=== PATIENT | male | born 1970 | race Caucasian/White ===

== ENCOUNTER 2017-02-17 05:50 | Inpatient (IN) | payer OTHER ==
[2017-02-14 10:31] VITALS: Ht 182.9 cm; Wt 85.0 kg
[~2017-02-17] VITALS: Ht 182.9 cm; Wt 85.0 kg
[2017-02-17] VITALS (22 sets, daily range): BP systolic 107–127; BP diastolic 59–78; PULSE 62–82; RESP 7–19
--- NOTE | 2017-02-17 06:31 | HPN ---
Date/Time of Note Date/Time of Note DATE: 02/17/17 TIME: 06:30 Interval H&P Admission Note Pt. seen H&P reviewed: No system changes LENNY HADLEY MD February 17, 2017 06:31
[2017-02-17] MEDS ORDERED: SUCCINYLCHOLINE CHLORIDE 100 MG/5 ML SYG IV ONE (06:46)
[2017-02-17] MEDS ORDERED: LIDOCAINE 2% (SDV) 5 ML INJ ONE (06:46)
[2017-02-17] MEDS ORDERED: ROCURONIUM 50 MG INJ ONE (06:46)
[2017-02-17] MEDS ORDERED: MIDAZOLAM 1 MG/ML 2 ML INJ ONE (06:47)
[2017-02-17] MEDS ORDERED: ROPIVACAINE 0.5 % 30 ML VIAL ONE ×2 (06:47→06:54)
[2017-02-17] MEDS ORDERED: PROPOFOL 20 ML ONE (06:47)
[2017-02-17] MEDS ORDERED: FENTAnyl 50 MCG/ML VIAL ONE (06:47)
[2017-02-17] MEDS ORDERED: THROMBIN 5000 UNIT VIAL ONE (06:54)
[2017-02-17] MEDS ORDERED: POLYMYXIN/BACITRACIN 1L IRRIG ONE ×2 (06:54→10:41)
[2017-02-17] MEDS ORDERED: GELATIN SIZE 100 SPONGE ONE (06:54)
[2017-02-17] MEDS ORDERED: PROPOFOL 200 MG INJ ONE (07:00)
[2017-02-17] MEDS ORDERED: HYDROmorphONE 2 MG/ML SYG ONE (07:43)
[2017-02-17] MEDS ORDERED: ONDANSETRON 4 MG INJ ONE (07:43)
[2017-02-17] MEDS ORDERED: METOCLOPRAMIDE 10 MG INJ ONE (07:43)
[2017-02-17] MEDS ORDERED: DEXAMETHASONE 4 MG/ML 1 ML INJ ONE (07:43)
[2017-02-17] MEDS ORDERED: FAMOTIDINE 20 MG INJ ONE (07:43)
[2017-02-17] MEDS ORDERED: EPHEDrine SULFATE 50 MG/5 ML SYG ONE (08:19)
[2017-02-17] MEDS ORDERED: DIPHENHYDRAMINE 50 MG INJ IV PRN (10:30)
[2017-02-17] MEDS ORDERED: FENTAnyl 50 MCG/ML VIAL IV PRN ×3 (10:30)
[2017-02-17] MEDS ORDERED: PROCHLORPERAZINE 10 MG INJ IV PRN (10:30)
[2017-02-17] MEDS ORDERED: HYDROmorphONE (0.2 MG/ML) 10ML SYG IV PRN ×3 (10:30)
[2017-02-17] MEDS ORDERED: ONDANSETRON 4 MG INJ IV PRN (10:30)
[2017-02-17] MEDS ORDERED: MEPERIDINE 25 MG INJ IV PRN (10:30)
[2017-02-17] MEDS ORDERED: POVIDONE IODINE 10% 28.4 GM OINT ONE (10:56)
[2017-02-17] MEDS ORDERED: CEFAZOLIN 1 GM INJ ONE ×3 (11:23)
[2017-02-17] MEDS: SOD CHLORIDE 0.9% 1,000 ML IV SCH ×2 (11:42→21:55)
[2017-02-17] MEDS ORDERED: HYDROmorphONE 0.2 MG/ML PCA ONE (11:56)
[2017-02-17] MEDS ORDERED: morphine 10 MG INJ IV PRN (12:00)
[2017-02-17] MEDS ORDERED: DIPHENHYDRAMINE 25 MG CAP PO PRN (12:00)
[2017-02-17] MEDS ORDERED: HYDROmorphONE 0.2 MG/ML PCA IV SCH (12:00)
[2017-02-17] MEDS ORDERED: BISACODYL 10 MG SUPP PR PRN (12:00)
[2017-02-17] MEDS ORDERED: OXYCODONE/ACETAMINOPHEN (5/325) TAB PO PRN (12:00)
[2017-02-17] MEDS ORDERED: CEFAZOLIN 1 GM INJ IV SCH (12:00)
--- NOTE | 2017-02-17 15:05 | OPR ---
DATE OF OPERATION: 02/17/2017 PREOPERATIVE DIAGNOSES: 1. Status post Lisfranc fracture dislocation of the left foot. 2. Status post open reduction internal fixation Lisfranc fracture dislocation, 1985. 3. Degenerative joint disease, first, second, third metatarsocuneiform joints. POSTOPERATIVE DIAGNOSES: 1. Status post Lisfranc fracture dislocation of the left foot. 2. Status post open reduction internal fixation Lisfranc fracture dislocation, 1985. 3. Degenerative joint disease, first, second, third metatarsocuneiform joints. OPERATIONS PERFORMED: 1. Arthrodesis of the first metatarsocuneiform joint. 2. Arthrodesis of the second metatarsocuneiform joint. 3. Arthrodesis of the third metatarsocuneiform joint. 4. Arthrodesis of the first and second metatarsals. 5. Arthrodesis of the middle to the medial cuneiform. 6. Iliac crest bone graft to the arthrodesis site with Ignite 7. Use of fluoroscopy to verify position and alignment of the guide pins and screws and plates. 8. Short leg cast. Extremely complex difficult procedure because the patient had previously had surgery, so this was a revision surgery. There was extensive amount with altered anatomy, adhesions, scar tissue. It was difficult initially to find some of the joints because of this. Because of the complex nature of th e surgery, add an additional 60 minutes (22). SURGEON: Lenny Danielson MD WRAPPER CASHIER: Eleni Ivory MD ANESTHESIA: General. TOURNIQUET TIME: 142 minutes. DESCRIPTION OF PROCEDURE: The patient taken to the operating room and placed in supine. Satisfacto ry popliteal block was given, satisfactory general anesthesia was administered, 2 grams Ancef given intravenously. The left iliac crest all the way down to the tip of the foot was prepped and draped in the usual manner. Our attention was turned to the iliac crest. The skin was pulled up on the iliac crest. I made an incision over the mid portion. Dissection car ried down to subcutaneous tissue. Fascia was split in line with its fibers and retracted. Two vert ical cuts were made, one horizontal cut was made in the top of the iliac crest to trap door open the iliac crest. Bone graft was obtained with different angled curets. Bone marrow aspirate was also removed as well. Once adequate amount of bone graft and bone marrow aspirate had been obtained, the wounds were irrigated with antibiotic solution and packed with thrombin-soaked Gelfoam. Gloves wer e changed. A sterile cover was placed over the wound, and our attention was turned to the foot. Tourniquet inflated to 250 mmHg. We already had one incision that we were obligated to use, althoug h it was not in an optimal position. We made a second incision more medial to try to leave as much skin bridge as possible, but still allow us get to the areas of the surgery. Incision was made over the first and second metatarsocuneiform joint. Dissection carried down to subcutaneous tissue. Te ndons and neurovascular bundles were elevated out of the field. Using electrosurgery and elevator, first metatarsocuneiform joint was identified and verified under fluoroscopy with a needle in it. T he second metatarsocuneiform joint was identified, verified with a needle, and verified under fluoro scopy. The second metatarsal base was identified as was the middle to the medial cuneiform articula tion. We only went a little bit of the way and several millimeters in both of those articulations, not violate the naviculocuneiform joint. Using different angled curettes and an osteotome, all maría cular cartilage was removed from the first and second metatarsocuneiform joints. Laminar spur was u sed to give us good exposure. A bur was used to remove 1 mm of bone from the first metatarsocuneifo rm joint, second metatarsocuneiform joint, and then the metatarsals 1 and 2 joint, and the cuneiform joints. Multiple "spot welds were made" to facilitate bleeding. Multiple drill holes were made wi th 0.045 K-wire. Once appropriate preparation of the 2 joints was made, we had to go through the pr evious incision carefully. It was very difficult to find as the second and third joints particularl y because of previous surgery. There was a lot of scarring and Adhesions. Eventually we were able to identify the third metatarsocuneiform joint. Osteophytes were removed off of all 3 joints with a rongeur and with a bur. All articular cartilage was removed from the third metatarsocuneiform join ts. A bur was used to remove about 1 mm of bone on both sides of the metatarsocuneiform joint and t hen multiple spot welds were made and multiple drill holes were made. We removed any soft tissue be tween the second and third metatarsocuneiform joints. The bone graft was then inserted in all the j oints that we fused as mentioned above in our operation description. Blood was sterilely aspirated from the patient and then mixed with Ignite and this was injected in all the joints as well includin g the first, second, and third metatarsocuneiform joints. The first metatarsocuneiform joint was re duced and fixated with the guide pin from the 4.0 AO cannulated screw set. Looked well reduced, goo d position on fluoroscopic view. A U-plate from the [place] Dog set was fitted over the first an d second metatarsocuneiform joints. It was fixated with screws, and then compression was done throu gh each segment with a special compression device. The hole was partially drilled the 4.0 AO cannul ated screw set, and then a screw of appropriate length was inserted. Excellent compression was achi eved. A small 2-hole plate was then applied over the third metatarsocuneiform joint and compression applied. The tourniquet was released, bleeders were coagulated, wounds irrigated with antibiotic s olution. Additional Ignite was injected at all the fusion joints. Then the soft tissues were close d over the plates with 3-0 undyed Vicryl running in both incisions. Both incisions were then closed with 4-0 black nylon, interrupted throughout the procedure, the flap looked healthy. An ankle bloc k was done with 0.5% ropivacaine, ropivacaine was injected in the hip. Compression dressing was alba blake on the hip, compression dressing placed on the ankle, a short-leg cast was placed in neutral pos ition. At the end of procedure, sponge and needle count was correct. The patient did well and the case was split in the recovery room. VFX ARTIST ORTHOPEDIC SURGEON: During the procedure, an malt specifications control assistant orthopedic surgeon was used at my request. The malt specifications control assistant helped with exposure in both areas. The malt specifications control assistant also helped with insertin g the screws while I held the joints reduced. Without a skilled orthopedic surgeon assisting me, th is could not have been done; therefore, it should be compensated appropriately. Dictated By: LENNY SANTAMARIA/ROXANNE Conf#: [id number] DID#: [id number]
--- NOTE | 2017-02-17 16:51 | RADRPT ---
PROCEDURE: Intraoperative imaging of the left foot with fluoroscopy. CLINICAL INDICATION: Left foot pain. Intraoperative. TECHNIQUE: 8 images of the left foot were obtained in the operating room with an image intensifier . No radiologist was in attendance. 0.3 minutes of fluoroscopy time was used. COMPARISON: No prior study is available for comparison. FINDINGS: Images demonstrate fusion of the first, second, and third tarsal-metatarsal joints with plates and s crews. IMPRESSION: 1. Intraoperative imaging of the left foot. RPTAT: QQ .Dayton Matias MD, MD Date Time Electronically viewed and signed by .Dayton Matias MD, on 02/17/2017 16:51 .R/
[2017-02-17] MEDS: CEFAZOLIN 2 GM/50 ML (PMX) 50 ML IVPB SCH (18:27)
[2017-02-17] MEDS: SENNA/DOCUSATE NA (8.6MG/50MG) TAB PO SCH (21:55)
[2017-02-17] MEDS: HYDROCODONE/APAP (5/325) TAB PO PRN (22:12)
[2017-02-18] MEDS: CEFAZOLIN 2 GM/50 ML (PMX) 50 ML IVPB SCH ×3 (02:17→18:36)
[2017-02-18] MEDS: HYDROCODONE/APAP (5/325) TAB PO PRN ×6 (02:26→22:33)
--- NOTE | 2017-02-18 07:17 | PN ---
Date/Time of Note Date/Time of Note DATE: 02/18/17 TIME: 07:15 Assessment/Plan VTE Prophylaxis VTE Prophylaxis Intervention: ambulation, other (Xarelto) Lines/Catheters IV Catheter Type (from Nrsg): Peripheral IV Urinary Cath still in place: No Assessment/Plan Chief Complaint/Hosp Course POD#1 s/p left 1-3 MT/Cuneiform fusion with left sided iliac crest bone graft. 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 NWB LLE. - SCD's/Xarelto/ambulation for DVT PPx - Dispo pending pain control and PT clearance, likely this afternoon. Subjective 24 Hr Interval Summary Subjective hx not possible: other (no acute overnight issues. pain well controlled. Denies nausea/vomiting/Chest pain/shortness of breath) Exam/Review of Systems Vital Signs Vitals Vital Signs Date Time Temp Pulse Resp B/P Pulse Ox O2 Delivery O2 Flow Rate FiO2 02/18/17 05:40 18 02/17/17 20:38 98.0 60 111/69 99 02/17/17 17:00 Room Air 02/17/17 11:56 8.0 Intake and Output 02/17/17 02/17/17 02/18/17 15:00 23:00 07:00 Intake Total 1950 ml 350 ml 240 ml Output Total 30 ml 1100 ml Balance 1920 ml 350 ml -860 ml Exam Constitutional: alert, oriented Respiratory: normal air movement Cardiovascular: nl pulses Musculoskeletal: other (LLE cast with some serosanguinous soak through. Able to wiggle toes. Sensation grossly intact. Brisk capillary refill. Left hip dressing CDI. ) Medications Medications Current Medications Senna/Docusate Sodium (Senokot-S) 1 tab BID PO Last administered on 02/17/17 21 :55; Admin Dose 1 TAB; Start 02/17/17 at 21:00 Magnesium Hydroxide (Milk Of Mag) 30 ml HS PO ; Start 02/19/17 at 21:00 Bisacodyl 10 mg 10 mg DAILY PRN [place] CONSTIPATION; Start 02/17/17 at 12:00 Sodium Chloride (NS) 1,000 ml @ 100 mls/hr Q10H IV Last administered on 21:55; Admin Dose 100 MLS/HR; Start 02/17/17 at 11:42 Morphine Sulfate (morphine) 5 mg Q4H PRN IV PAIN LEVEL 7-10; Start 02/17/17 at 12:00 Ondansetron HCl (Zofran Inj) 4 mg Q4H PRN IV NAUSEA AND/OR VOMITING; Start 02/17 at 12:00 Diphenhydramine HCl 25 mg 25 mg Q4H PRN PO ITCHING; Start 02/17/17 at 12:00 Cefazolin Sodium/ Dextrose (Ancef 2 Gm/50 ml (Pmx)) 50 ml @ 100 mls/hr Q8H IVPB Last administered on 02/18/17 02:17; Admin Dose 100 MLS/HR; Start 02/17/17 at 18:00; Stop 02/19/17 at 10:29 Acetaminophen/ Hydrocodone Bitart ([place] (5/325)) 2 tab Q4H PRN PO Moderate Pain 5-7 Last administered on 02/18/17 06:32; Admin Dose 2 TAB; Start 02/17/17 at 20:30 LENNY HADLEY MD February 18, 2017 07:17
[2017-02-18] MEDS: SOD CHLORIDE 0.9% 1,000 ML IV SCH ×2 (07:42→16:02)
[2017-02-18 09:08] VITALS: BP_SYST 104; BP_SYST 118; BP_DIAS 55; BP_DIAS 57; RESP 19
[2017-02-18] MEDS: SENNA/DOCUSATE NA (8.6MG/50MG) TAB PO SCH ×2 (10:42→20:27)
[2017-02-18] MEDS ORDERED: OXYCODONE/ACETAMINOPHEN (5/325) TAB PO PRN (11:00)
[2017-02-18] MEDS: HYDROmorphONE 1 MG/ML SYG IV PRN ×4 (11:19→21:17)
[2017-02-18] MEDS: RIVAROXABAN 10 MG TABLET PO SCH (18:35)
[2017-02-18] MEDS: ONDANSETRON 4 MG INJ IV PRN (18:35)
[2017-02-18 20:07] VITALS: BP 114/60; RESP 20
[2017-02-19] MEDS: HYDROmorphONE 1 MG/ML SYG IV PRN ×7 (00:22→23:13)
[2017-02-19] MEDS: CEFAZOLIN 2 GM/50 ML (PMX) 50 ML IVPB SCH ×2 (02:22→10:07)
[2017-02-19] MEDS: HYDROCODONE/APAP (5/325) TAB PO PRN ×2 (02:22→06:01)
[2017-02-19] MEDS: SOD CHLORIDE 0.9% 1,000 ML IV SCH ×3 (03:11→23:42)
--- NOTE | 2017-02-19 06:30 | PN ---
Date/Time of Note Date/Time of Note DATE: 02/19/17 TIME: 06:28 Assessment/Plan VTE Prophylaxis VTE Prophylaxis Intervention: ambulation, other Lines/Catheters IV Catheter Type (from Nrsg): Peripheral IV Urinary Cath still in place: No Assessment/Plan Chief Complaint/Hosp Course POD#2 s/p left 1-3 MT/Cuneiform fusion with left sided iliac crest bone graft. Problems: Assessment/Plan - Pain control: [place] 10/325, try to wean dilaudid -NWB LLE - PT/OT - Xarelto - Dispo, likely this afternoon. Subjective 24 Hr Interval Summary Free Text/Dictation No acute issues. Still requiring IV pain medication. Exam/Review of Systems Vital Signs Vitals Vital Signs Date Time Temp Pulse Resp B/P Pulse Ox O2 Delivery O2 Flow Rate FiO2 02/18/17 20:07 98.6 63 20 114/60 96 02/17/17 17:00 Room Air 02/17/17 11:56 8.0 Intake and Output 02/18/17 02/18/17 02/19/17 15:00 23:00 07:00 Intake Total 50 ml 1640 ml 805 ml Output Total 500 ml 580 ml Balance 50 ml 1140 ml 225 ml Exam Constitutional: alert, oriented Respiratory: normal air movement Cardiovascular: nl pulses Musculoskeletal: other (Serosanguinous soak through on cast. NVID, brisk cap refill. Wiggling toes. ) Medications Medications Current Medications Senna/Docusate Sodium (Senokot-S) 1 tab BID PO Last administered on 02/18/17 20 :27; Admin Dose 1 TAB; Start 02/17/17 at 21:00 Magnesium Hydroxide (Milk Of Mag) 30 ml HS PO ; Start 02/19/17 at 21:00 Bisacodyl 10 mg 10 mg DAILY PRN [place] CONSTIPATION; Start 02/17/17 at 12:00 Sodium Chloride (NS) 1,000 ml @ 100 mls/hr Q10H IV Last administered on 16:02; Admin Dose 100 MLS/HR; Start 02/17/17 at 11:42 Morphine Sulfate (morphine) 5 mg Q4H PRN IV PAIN LEVEL 7-10 Last administered on 02/18/17 07:25; Admin Dose 5 MG; Start 02/17/17 at 12:00 Ondansetron HCl (Zofran Inj) 4 mg Q4H PRN IV NAUSEA AND/OR VOMITING Last administered on 02/18/17 18:35; Admin Dose 4 MG; Start 02/17/17 at 12:00 Diphenhydramine HCl 25 mg 25 mg Q4H PRN PO ITCHING; Start 02/17/17 at 12:00 Cefazolin Sodium/ Dextrose (Ancef 2 Gm/50 ml (Pmx)) 50 ml @ 100 mls/hr Q8H IVPB Last administered on 02/19/17 02:22; Admin Dose 100 MLS/HR; Start at 18:00; Stop 02/19/17 at 10:29 Acetaminophen/ Hydrocodone Bitart ([place] (5/325)) 2 tab Q4H PRN PO Moderate Pain 5-7 Last administered on 02/19/17 06:01; Admin Dose 2 TAB; Start 02/17/17 at 20:30 Oxycodone/ Acetaminophen (Percocet (5/ 325)) 2 tab Q4H PRN PO PAIN Last administered on 02/18/17 20:55; Admin Dose 2 TAB; Start 02/18/17 at 11:00 Hydromorphone HCl (Dilaudid) 0.5 mg Q3H PRN IV PAIN Last administered on 03:23; Admin Dose 0.5 MG; Start 02/18/17 at 11:00 LENNY HADLEY MD February 19, 2017 06:30
[2017-02-19] MEDS: DIAZEPAM 5 MG TAB PO PRN ×3 (06:51→20:43)
[2017-02-19 07:53] VITALS: BP 116/69; RESP 18
[2017-02-19] MEDS: SENNA/DOCUSATE NA (8.6MG/50MG) TAB PO SCH ×2 (08:20→20:43)
[2017-02-19] MEDS: HYDROCODONE/APAP (10/325) TAB PO PRN ×4 (10:07→22:03)
[2017-02-19] MEDS: RIVAROXABAN 10 MG TABLET PO SCH (17:58)
[2017-02-19] MEDS: ONDANSETRON 4 MG INJ IV PRN (19:56)
[2017-02-19 20:43] VITALS: BP 106/56; RESP 20
[2017-02-19] MEDS ORDERED: MAGNESIUM HYDROXIDE 30ML CUP PO SCH (21:00)
[2017-02-19] MEDS: morphine (ER) 15 MG TAB PO SCH (21:00)
[2017-02-20] MEDS: HYDROCODONE/APAP (10/325) TAB PO PRN ×3 (02:04→10:27)
[2017-02-20] MEDS: DIAZEPAM 5 MG TAB PO PRN ×2 (02:54→08:51)
[2017-02-20] MEDS: HYDROmorphONE 1 MG/ML SYG IV PRN (03:34)
--- NOTE | 2017-02-20 07:37 | PN ---
Date/Time of Note Date/Time of Note DATE: 02/20/17 TIME: 07:35 Assessment/Plan VTE Prophylaxis VTE Prophylaxis Intervention: ambulation, other (xarelto) Lines/Catheters IV Catheter Type (from Nrsg): Peripheral IV Urinary Cath still in place: No Assessment/Plan Chief Complaint/Hosp Course POD#3 s/p left 1-3 MT/Cuneiform fusion with left sided iliac crest bone graft. Problems: Assessment/Plan pain control: [place] 10/Valium PT/OT - cleared Xarelto Overwrapped cast to cover bloody soakthrough DIspo: Home today Subjective 24 Hr Interval Summary Subjective hx not possible: other (Pain much improved. Slept all night. c/o numbness/tingling in 2nd toe. ) Exam/Review of Systems Vital Signs Vitals Vital Signs Date Time Temp Pulse Resp B/P Pulse Ox O2 Delivery O2 Flow Rate FiO2 02/19/17 20:43 97.5 75 20 106/56 99 02/17/17 17:00 Room Air 02/17/17 11:56 8.0 Intake and Output 02/19/17 02/19/17 02/20/17 15:00 23:00 07:00 Intake Total 320 ml 1080 ml 1160 ml Balance 320 ml 1080 ml 1160 ml Exam Constitutional: alert, oriented Respiratory: normal air movement Cardiovascular: nl pulses Musculoskeletal: other (LLE with cast in place. No further soakthrough. Albe to wiggle toes. 2nd toe with abnormal sensation but can feel light touch. Toes with BCR. ) Medications Medications Current Medications Senna/Docusate Sodium (Senokot-S) 1 tab BID PO Last administered on 02/19/17 20:43; Admin Dose 1 TAB; Start 02/17/17 at 21:00 Magnesium Hydroxide (Milk Of Mag) 30 ml HS PO ; Start 02/19/17 at 21:00 Bisacodyl 10 mg 10 mg DAILY PRN [place] CONSTIPATION; Start 02/17/17 at 12:00 Sodium Chloride (NS) 1,000 ml @ 100 mls/hr Q10H IV Last administered on 16:02; Admin Dose 100 MLS/HR; Start 02/17/17 at 11:42 Morphine Sulfate (morphine) 5 mg Q4H PRN IV PAIN LEVEL 7-10 Last administered on 02/18/17 07:25; Admin Dose 5 MG; Start 02/17/17 at 12:00 Ondansetron HCl (Zofran Inj) 4 mg Q4H PRN IV NAUSEA AND/OR VOMITING Last administered on 02/19/17 19:56; Admin Dose 4 MG; Start 02/17/17 at 12:00 Diphenhydramine HCl (Benadryl) 25 mg Q4H PRN PO ITCHING; Start 02/17/17 at 12:00 Acetaminophen/ Hydrocodone Bitart ([place] (5/325)) 2 tab Q4H PRN PO Moderate Pain 5-7 Last administered on 02/19/17 06:01; Admin Dose 2 TAB; Start 02/17/17 at 20:30 Oxycodone/ Acetaminophen (Percocet (5/ 325)) 2 tab Q4H PRN PO PAIN Last administered on 02/18/17 20:55; Admin Dose 2 TAB; Start 02/18/17 at 11:00 Hydromorphone HCl (Dilaudid) 0.5 mg Q3H PRN IV PAIN Last administered on 03:34; Admin Dose 0.5 MG; Start 02/18/17 at 11:00 Acetaminophen/ Hydrocodone Bitart ([place] (10/325)) 2 tab Q4H PRN PO PAIN Last administered on 02/20/17 06:20; Admin Dose 2 TAB; Start 02/19/17 at 06:30 Diazepam (Valium) 5 mg Q6H PRN PO ANXIETY Last administered on 02/20/17 02:54 ; Admin Dose 5 MG; Start 02/19/17 at 07:00 Morphine Sulfate (Ms Contin (Er)) 15 mg BID PO ; Start 02/19/17 at 21:00 LENNY HADLEY MD February 20, 2017 07:37
[2017-02-20 07:57] VITALS: BP 130/70; RESP 18
[2017-02-20] MEDS: morphine (ER) 15 MG TAB PO SCH (08:20)
[2017-02-20] MEDS: SENNA/DOCUSATE NA (8.6MG/50MG) TAB PO SCH (08:21)
[2017-02-20] MEDS: SOD CHLORIDE 0.9% 1,000 ML IV SCH (09:01)
--- NOTE | 2017-02-21 12:36 | DS ---
DATE OF ADMISSION: 02/17/2017 DATE OF DISCHARGE: 02/20/2017 DISCHARGE DIAGNOSES: 1. Severe degenerative joint disease of the left foot first, second and third metatarsocuneiform lakshmi ints 2. Status post Lisfranc open reduction internal fixation. SURGERY: Arthrodesis of the first, second and third metatarsocuneiform joints, left midfoot with sc rews and plate and iliac crest bone graft on 02/17/2017. HISTORY OF PRESENT ILLNESS: The patient is a 47-year-old male who suffered a Lisfranc fracture-disl ocation in the past, had ORIF and subsequent hardware removal. Continues to have significant pain. Has gone on to develop degenerative joint disease of the first, second and third metatarsocuneiform joints. He is admitted now for fusion. PAST MEDICAL HISTORY: See the history and physical record. PHYSICAL EXAMINATION: Normal except the orthopedic exam, which revealed diffuse pain about the firs t, second and third metatarsocuneiform joints. There is a healed incision from previous surgery. LABORATORY DATA: Normal. Chest x-ray was clear. EKG was normal. HOSPITAL COURSE: The patient was taken to the operating room and underwent the above-mentioned proc edure. Postoperatively, he had a lot of pain getting up, unable to be discharged until the second p ostoperative day. He was discharged on Percocet. He will be followed in the office in 1 week. Dictated By: LENNY SANTAMARIA/ROXANNE Conf#: [id number] DID#: [id number]
== END 2017-02-20 11:38 | disposition home or self-care (01) | DRG 505 ==
LOC: SDS 05:50 → MS1 11:44
PROVIDERS: ADMIT Orthopaedic Surgery; ATTEND Orthopaedic Surgery
PROC: 0SGJ07Z Fusion of Left Tarsal Joint with Autologous Tissue Substitute, Open Approach (ICD-10-PCS; 2017-02-17)
PROC: 0QB30ZZ Excision of Left Pelvic Bone, Open Approach (ICD-10-PCS; 2017-02-17)
PROC: 07DR3ZZ Extraction of Iliac Bone Marrow, Percutaneous Approach (ICD-10-PCS; 2017-02-17)
PROC: 0SGN07Z Fusion of Left Metatarsal-Phalangeal Joint with Autologous Tissue Substitute, Open Approach (ICD-10-PCS; principal; 2017-02-17 07:00)
DX: M19.172 Post-traumatic osteoarthritis, left ankle and foot (principal)
CPT/HCPCS: 97116; 97162; 97530; C1713; J0330; J0690; J1100; J1170; J2250; J2270; J2405; J2765; J2795; J3010; J7030